=== PATIENT | female | born 1960 | race American Indian/Alaskan Native ===

== ENCOUNTER 2016-10-20 14:15 | Emergency (ER) | payer MEDICARE, OTHER ==
--- NOTE | 2016-10-20 16:43 | Emergency Department Report ---
ED General Adult HPI - General Chief complaint: Upper Respiratory Infection Stated complaint: LT SWOLLEN/FLU SYMPTOMS Time Seen by Provider: 10/20/16 16:22 Source: patient, family Mode of arrival: Wheelchair Limitations: No Limitations - History of Present Illness Initial comments: Patient here complaining of flulike symptoms to include bodyache, chills, nonproductive cough, congestion and left knee tightness. She says she feels like fluid is on her knee for the past 2 days. Denies any pain at present. Denies any chest pain or shortness of breath. Denies Any trauma to knee. She says she has a history of arthritis. Denies any fever. Denies any nausea or vomiting. Says she's been taking [id number] medication without any relief. MD Complaint: Flulike symptoms/knee tightness Onset/Timin -: days(s) Location: left, lower extremity Severity scale (0 -10): 0 Associated Symptoms: cough, fever/chills. denies: confusion, chest pain, headaches, loss of appetite, malaise, nausea/vomiting, rash, seizure, shortness of breath, syncope, weakness Treatments Prior to Arrival: other (OTC meds) - Related Data Home Medications Medication Instructions Recorded Confirmed Last Taken Losartan/Hydrochlorothiazide 1 each PO DAILY 11/17/14 11/17/14 11/17/14 [Hyzaar 100-25 Tablet] Metoprolol Xl [Metoprolol 50 mg PO QDAY 11/17/14 11/17/14 11/17/14 SUCCINATE] Pioglitazone (Nf) [Actos] 30 mg PO QDAY 11/17/14 11/17/14 11/17/14 Potassium Chloride [K-Dur] 20 meq PO QDAY 11/17/14 11/17/14 11/17/14 Warfarin Sodium [Coumadin] 10 mg PO DAILY 11/17/14 11/17/14 11/17/14 amLODIPine [Norvasc] 5 mg PO DAILY 11/17/14 11/17/14 11/17/14 Previous Rx's Medication Instructions Recorded Last Taken Type Metaxalone [Skelaxin] 800 mg PO TID PRN #14 tablet 03/09/16 Unknown Rx ALBUTEROL Inhaler [ProAir HFA 2 puff IH QID PRN #1 inhalation 10/20/16 Unknown Rx Inhaler] Levofloxacin [Levaquin] 750 mg PO QDAY #6 tablet 10/20/16 Unknown Rx guaiFENesin DM [Robitussin Dm] 10 ml PO Q6HR PRN #200 ml 10/20/16 Unknown Rx Allergies Allergy/AdvReac Type Severity Reaction Status Date / Time codeine Allergy Unknown Verified 11/17/14 18:05 ED Review of Systems ROS: Stated complaint: LT SWOLLEN/FLU SYMPTOMS Other details as noted in HPI Comment: All other systems reviewed and negative Constitutional: chills. denies: fever ENT: congestion Respiratory: cough, wheezing (scant wheezing upper yen), other (Rhonci cleared with cough). denies: orthopnea, shortness of breath, SOB with exertion , SOB at rest Cardiovascular: denies: chest pain, palpitations, edema, syncope Gastrointestinal: abdominal pain. denies: nausea, vomiting, diarrhea, constipation, hematemesis, melena, hematochezia Musculoskeletal: arthralgia. denies: back pain, joint swelling, myalgia Skin: denies: rash Neurological: denies: headache, numbness, paresthesias, confusion, abnormal gait , vertigo ED Past Medical Hx - Past Medical History Previous Medical History?: Yes Hx Hypertension: Yes Hx Diabetes: Yes Hx Arthritis: Yes Additional medical history: PE 2011. sepsis 2011 - Surgical History Past Surgical History?: Yes - Family History Family history: no significant - Social History Smoking Status: Never Smoker Substance Use Type: None - Medications Home Medications: Home Medications Medication Instructions Recorded Confirmed Last Taken Type Losartan/Hydrochlorothiazide 1 each PO DAILY 11/17/14 11/17/14 11/17/14 History [Hyzaar 100-25 Tablet] Metoprolol Xl [Metoprolol 50 mg PO QDAY 11/17/14 11/17/14 11/17/14 History SUCCINATE] Pioglitazone (Nf) [Actos] 30 mg PO QDAY 11/17/14 11/17/14 11/17/14 History Potassium Chloride [K-Dur] 20 meq PO QDAY 11/17/14 11/17/14 11/17/14 History Warfarin Sodium [Coumadin] 10 mg PO DAILY 11/17/14 11/17/14 11/17/14 History amLODIPine [Norvasc] 5 mg PO DAILY 11/17/14 11/17/14 11/17/14 History Metaxalone [Skelaxin] 800 mg PO TID PRN #14 tablet 03/09/16 Unknown Rx ALBUTEROL Inhaler [ProAir HFA 2 puff IH QID PRN #1 inhalation 10/20/16 Unknown Rx Inhaler] Levofloxacin [Levaquin] 750 mg PO QDAY #6 tablet 10/20/16 Unknown Rx guaiFENesin DM [Robitussin Dm] 10 ml PO Q6HR PRN #200 ml 10/20/16 Unknown Rx ED Physical Exam - General Limitations: No Limitations General appearance: alert, in no apparent distress, other (morbidly obese) - Head Head exam: Present: atraumatic, normocephalic, normal inspection - Eye Eye exam: Present: normal appearance, PERRL, EOMI. Absent: periorbital swelling , periorbital tenderness Pupils: Present: normal accommodation - ENT ENT exam: Present: normal exam, normal orophraynx, mucous membranes moist, TM's normal bilaterally, normal external ear exam - Neck Neck exam: Present: normal inspection, full ROM. Absent: tenderness, meningismus, lymphadenopathy, thyromegaly - Respiratory Respiratory exam: Present: respiratory distress, wheezes. Absent: rales, rhonchi, stridor, chest wall tenderness, accessory muscle use - Cardiovascular Cardiovascular Exam: Present: regular rate, normal rhythm, normal heart sounds - GI/Abdominal GI/Abdominal exam: Present: soft, normal bowel sounds. Absent: distended, tenderness, guarding, rebound, rigid - Extremities Exam Extremities exam: Present: normal inspection, full ROM, normal capillary refill. Absent: tenderness, pedal edema, joint swelling, calf tenderness - Expanded Lower Extremity Exam Left Hip exam: Present: normal inspection, full ROM, pelvic stability. Absent: tenderness, swelling, abrasion, laceration, ecchymosis, deformity, crepidus, dislocation, erythema, external rotation, internal rotation, shortening Upper Leg exam: Present: normal inspection, full ROM. Absent: tenderness, swelling, abrasion, laceration, ecchymosis, deformity, crepidus, dislocation, erythema Knee exam: Present: normal inspection, full ROM, full knee extension. Absent: tenderness, swelling, abrasion, laceration, ecchymosis, deformity, crepidus, dislocation, erythema, effusion, pain w/ pronation/supination, posterior draw sign, pain/laxity with valgus, pain/laxity with varus Lower Leg exam: Present: normal inspection, full ROM. Absent: tenderness, swelling, abrasion, laceration, ecchymosis, deformity, crepidus, dislocation, erythema, palpable cord, Renetta's sign Ankle exam: Present: normal inspection, full ROM. Absent: tenderness, abrasion , laceration, ecchymosis, deformity, crepidus, dislocation, erythema Foot/Toe exam: Present: normal inspection, full ROM. Absent: tenderness, swelling, abrasion, laceration, ecchymosis, deformity, crepidus, dislocation, erythema, amputation, puncture wound, foreign body, calcaneal tenderness, tenderness at base of 5th metatarsal, nail avulsion, subungual hematoma Neuro vascular tendon exam: Present: no vascular compromise. Absent: pulse deficit, abnormal cap refill, motor deficit, sensory deficit, tendon deficit, extremity cold to touch, pallor, abnormal 2-point discrimination, decreased fine /light touch, foot drop, peroneal nerve deficit, significant pain with passive ROM of distal joint Gait: Positive: observed and normal - Back Exam Back exam: Present: normal inspection, full ROM. Absent: tenderness, CVA tenderness (R), CVA tenderness (L), muscle spasm, paraspinal tenderness, vertebral tenderness, rash noted - Neurological Exam Neurological exam: Present: alert, oriented X3, normal gait, reflexes normal. Absent: motor sensory deficit - Psychiatric Psychiatric exam: Present: normal affect, normal mood - Skin Skin exam: Present: warm, dry, intact, normal color. Absent: rash ED Course Vital Signs 10/20/16 14:31 Temperature 98.5 F Pulse Rate 87 Respiratory 18 Rate Blood Pressure 158/80 O2 Sat by Pulse 97 Oximetry Vital Signs 10/20/16 10/20/16 10/20/16 14:31 18:00 18:15 Temperature 98.5 F Pulse Rate 87 Pulse Rate [ 77 78 Anterior Bilateral Upper Lobe] Pulse Rate [ 77 78 Posterior Bilateral Upper Lobe] Respiratory 18 Rate Respiratory 20 20 Rate [Anterior Bilateral Upper Lobe] Respiratory 20 20 Rate [Posterior Bilateral Upper Lobe] Blood Pressure 158/80 O2 Sat by Pulse 97 Oximetry Vital Signs 10/20/16 10/20/16 10/20/16 14:31 18:00 18:15 Temperature 98.5 F Pulse Rate 87 Pulse Rate [ 77 78 Anterior Bilateral Upper Lobe] Pulse Rate [ 77 78 Posterior Bilateral Upper Lobe] Respiratory 18 Rate Respiratory 20 20 Rate [Anterior Bilateral Upper Lobe] Respiratory 20 20 Rate [Posterior Bilateral Upper Lobe] Blood Pressure 158/80 Blood Pressure [Left] O2 Sat by Pulse 97 Oximetry 10/20/16 19:11 Temperature Pulse Rate 77 Pulse Rate [ Anterior Bilateral Upper Lobe] Pulse Rate [ Posterior Bilateral Upper Lobe] Respiratory 20 Rate Respiratory Rate [Anterior Bilateral Upper Lobe] Respiratory Rate [Posterior Bilateral Upper Lobe] Blood Pressure Blood Pressure 167/88 [Left] O2 Sat by Pulse 99 Oximetry - Reevaluation(s) Reevaluation #1: 10/20/16 17:06 Patient is stable ,no distress. Awaiting x-ray results. Reevaluation #2: 10/20/16 18:32 Upon reevaluation, lungs sounds clear. ED Medical Decision Making - Radiology Data Radiology results: report reviewed, image reviewed interpreted by me: Straight images reviewed by myself and attending physician and it was decided the patient has right lower lobe pneumonia. Assessment revealed mild right lower lobe atelectasis versus pneumonia per radiologist's X-ray of left knee revealed moderate to severe osteoarthritis. Most severe in the medial compartment. Diffuse osteopenia. - Medical Decision Making ED Course: Given DuoNeb times one nebulizer treatment in emergency room. Also given Levaquin 750 mg by mouth and prednisone 60 mg by mouth. I discussed the patient that her x-ray reveals that she has right lower lobe pneumonia and we' ll need to take antibiotic and inhaler. I discussed with her that her knee shows moderate to severe osteoarthritis withOsteopenia. Superficial need to follow-up with orthopedic doctor in 3-5 days and her primary care physician on . I understand the discharge instruction discharged home with her family in stable condition. She was given prescription for Levaquin and albuterol. Critical care attestation.: If time is entered above; I have spent that time in minutes in the direct care of this critically ill patient, excluding procedure time. ED Disposition Clinical Impression: Community acquired pneumonia, Arthralgia of knee, left, Cough Osteoarthritis Qualifiers: Osteoarthritis location: knee Osteoarthritis type: unspecified Laterality: left Qualified Code(s): M17.9 - Osteoarthritis of knee, unspecified Disposition: DISCHARGED TO HOME OR SELFCARE Is pt being admited?: No Does the pt Need Aspirin: No Condition: Stable Instructions: Community-acquired Pneumonia (ED), Arthralgia (ED), Knee Pain (ED ), Knee Exercises (GEN), Acute Cough (ED) Additional Instructions: Please take antibiotic and other medication as prescribed. Follow-up with primary care physician in 3 days. Follow-up with orthopedic doctor in 3-5 days regarding severe osteoarthritis to left knee. Increase her fluid intake For 72 hours Prescriptions: Levofloxacin [Levaquin] 750 mg PO QDAY #6 tablet ALBUTEROL Inhaler [ProAir HFA Inhaler] 2 puff IH QID PRN #1 inhalation PRN Reason: Shortness Of Breath guaiFENesin DM [Robitussin Dm] 10 ml PO Q6HR PRN #200 ml PRN Reason: Cough Referrals: JOSE EDUARDO MAO MD [Primary Care Provider] - 10/23/16 JONN GONSALES MD [Staff Physician] - 3-5 Days Forms: Accompanied Note, Work/School Release Form(ED)
[2016-10-20] MEDS ORDERED: DUONEB 0.5 MG-3 MG/3 ML SOLN IH ONE (16:58)
[2016-10-20] MEDS ORDERED: DELTASONE PO ONE (16:58)
--- NOTE | 2016-10-20 17:57 | XRay Report ---
FINAL REPORT EXAM: XR CHEST ROUTINE 2V HISTORY: coughing and fever TECHNIQUE: Frontal and lateral chest radiographs. PRIORS: None. FINDINGS: The cardiomediastinal silhouette is normal. Ground-glass opacities are seen in the right lower lobe. No pleural effusion. No pneumothorax. No acute osseous abnormality. IMPRESSION: Mild right lower lobe atelectasis versus pneumonia.
--- NOTE | 2016-10-20 17:58 | XRay Report ---
FINAL REPORT EXAM: XR KNEE 3V LT HISTORY: lt knee pain TECHNIQUE: Three views of the left knee. PRIORS: None. FINDINGS: No fracture. No dislocation. There is severe diffuse osteopenia. There is joint space narrowing of the medial compartment. Moderate tricompartment osteophyte formations are seen. No soft tissue abnormality. No joint effusion. IMPRESSION: Moderate to severe osteoarthritis of the left knee, most severe in the medial compartment. Diffuse osteopenia.
[2016-10-20] MEDS ORDERED: LEVAQUIN PO ONE (18:30)
[2016-10-20 19:12] VITALS: BP 167/88
== END 2016-10-20 19:35 | disposition home or self-care (01) ==
LOC: ED 14:15
DX: J18.9 Pneumonia, unspecified organism (principal); M17.9 Osteoarthritis of knee, unspecified; I10 Essential (primary) hypertension; E11.9 Type 2 diabetes mellitus without complications; Z79.01 Long term (current) use of anticoagulants; Z88.6 Allergy status to analgesic agent
CPT/HCPCS: 71020; 73562; 94640; 99283; J7512

== ENCOUNTER 2016-10-23 14:16 | Emergency (ER) | payer MEDICARE, OTHER ==
[2016-10-23 14:44] VITALS: BP 171/88
[2016-10-23 19:46] LABS: INR 2.01 (0.87-1.13)
--- NOTE | 2016-10-23 20:05 | Emergency Department Report ---
HPI - General Chief Complaint: Allergic Reaction Time Seen by Provider: 10/23/16 14:47 - HPI HPI: Patient presents today with what she feels could be tendinitis. She was in the ED Sunday which was 3 days ago and was diagnosed with pneumonia, she was placed on Levaquin. She now complains of right upper arm and lower arm pain. She denies wrist and elbow pain. She does state that her cough is getting better and is mild. She denies chest pain and shortness of breath. She also denies injury of her right arm. She does have elevated blood pressure today she has a history of hypertension, and she has not taken her blood pressure medication for today. ED Past Medical Hx - Past Medical History Hx Hypertension: Yes Hx Diabetes: Yes Hx Arthritis: Yes Additional medical history: PE 2011. sepsis 2011, Pneumonia 2016 - Surgical History Past Surgical History?: No - Social History Smoking Status: Never Smoker Substance Use Type: None - Medications Home Medications: Home Medications Medication Instructions Recorded Confirmed Last Taken Type Losartan/Hydrochlorothiazide 1 each PO DAILY 11/17/14 11/17/14 11/17/14 History [Hyzaar 100-25 Tablet] Metoprolol Xl [Metoprolol 50 mg PO QDAY 11/17/14 11/17/14 11/17/14 History SUCCINATE] Pioglitazone (Nf) [Actos] 30 mg PO QDAY 11/17/14 11/17/14 11/17/14 History Potassium Chloride [K-Dur] 20 meq PO QDAY 11/17/14 11/17/14 11/17/14 History Warfarin Sodium [Coumadin] 10 mg PO DAILY 11/17/14 11/17/14 11/17/14 History amLODIPine [Norvasc] 5 mg PO DAILY 11/17/14 11/17/14 11/17/14 History Metaxalone [Skelaxin] 800 mg PO TID PRN #14 tablet 03/09/16 Unknown Rx ALBUTEROL Inhaler [ProAir HFA 2 puff IH QID PRN #1 inhalation 10/20/16 Unknown Rx Inhaler] Levofloxacin [Levaquin] 750 mg PO QDAY #6 tablet 10/20/16 Unknown Rx guaiFENesin DM [Robitussin Dm] 10 ml PO Q6HR PRN #200 ml 10/20/16 Unknown Rx Azithromycin [Zithromax] 250 mg PO DAILY #6 tablet 10/23/16 Unknown Rx ED Review of Systems ROS: Stated complaint: REACTION TO MEDS Other details as noted in HPI Constitutional: denies: chills, fever ENT: denies: ear pain, throat pain Respiratory: cough (mild). denies: shortness of breath, wheezing Cardiovascular: denies: chest pain, palpitations Gastrointestinal: denies: abdominal pain, nausea, diarrhea Genitourinary: denies: urgency, dysuria, discharge Musculoskeletal: as per HPI. denies: back pain, joint swelling, arthralgia Skin: denies: rash, lesions Neurological: denies: headache, weakness, numbness, paresthesias Physical Exam - Physical Exam Vital Signs: Vital Signs 10/23/16 14:38 Temperature 97.6 F Pulse Rate 95 H Respiratory 18 Rate Blood Pressure 171/88 O2 Sat by Pulse 100 Oximetry General: General: Female well-developed and nourished, no apparent distress noted, patient is ambulatory at time of exam. Cardiovascular: Heart sounds present S1-S2, no murmur, gallop, or ectopy noted,. Respiratory: Chest symmetry with respirations, lungs clear to auscultate upper and lower lobes, respirations even and unlabored, no rales, rhonchi, crackles noted. Peripheral Vascular: Radial pulses are 2/4 bilaterally. Upper Extremities: Warm without clubbing, edema or cyanosis. Neurological: The patient is oriented to person, place and time. Strength and sensation are grossly intact. Face is symmetric. There is no focal deficit. Skin: No ulceration, lesions, rashes, skin warm and dry, no erythematous areas. Musculo Skeletal - 5/5 strength, normal range of motion, no swollen or erythematous joints, patient is not tender at wrist, elbow, shoulder. She is mildly tender to palpate right upper arm. Psych: AxOx3, answers questions appropriately, mood full range, affect normal, normal speech and tone. ED Course Vital Signs 10/23/16 14:38 Temperature 97.6 F Pulse Rate 95 H Respiratory 18 Rate Blood Pressure 171/88 O2 Sat by Pulse 100 Oximetry ED Medical Decision Making - Medical Decision Making Patient presents to the ED with right upper arm pain after starting Levaquin. I will advise her to stop the Levaquin and give her a Z-Bryan. I also shaun an INR level and she is on Coumadin and has been on Levaquin. It shows that she is at a 2.01. I advised her to follow-up with her primary care physician who has her on the Coumadin. I will also place a sling on her right arm and give her a referral to orthopedics. - Differential Diagnosis tendon rupture, musculoskeletal pain, pneumonia Critical Care Time: No Critical care attestation.: If time is entered above; I have spent that time in minutes in the direct care of this critically ill patient, excluding procedure time. ED Disposition Clinical Impression: Pneumonia, Pain, arm, right Disposition: DISCHARGED TO HOME OR SELFCARE Is pt being admited?: No Does the pt Need Aspirin: No Condition: Stable Instructions: Bacterial Pneumonia (ED), Community-acquired Pneumonia (ED), Musculoskeletal Pain (ED) Additional Instructions: Follow-up with orthopedic Wear sling until follow up with ortho Follow up with PCP about INR 2 Prescriptions: Azithromycin [Zithromax] 250 mg PO DAILY #6 tablet Referrals: ISRRAEL LUGO [Primary Care Provider] - 3-5 Days JONN GONSALES MD [Staff Physician] - 3-5 Days Time of Disposition: 20:15
== END 2016-10-23 20:30 | disposition home or self-care (01) ==
LOC: ED 14:16
DX: J18.9 Pneumonia, unspecified organism (principal); M79.621 Pain in right upper arm; I10 Essential (primary) hypertension; E11.9 Type 2 diabetes mellitus without complications; M19.90 Unspecified osteoarthritis, unspecified site
CPT/HCPCS: 36415; 82962; 85610; 99283

== ENCOUNTER 2018-02-11 08:24 | Outpatient (CLI) | payer MEDICARE, OTHER ==
--- NOTE | 2018-02-11 10:39 | Ultrasound Report ---
ULTRASOUND PELVIC COMPLETE ULTRASOUND TRANSVAGINAL HISTORY: Abnormal vaginal bleeding, postmenopausal bleeding. COMPARISON: None. TECHNIQUE: Transabdominal and transvaginal ultrasound with color doppler interrogation. FINDINGS: Uterus: The uterus is anteverted and measures 8 x 8 x 8 cm. There is a large calcified fibroid in the posterior wall measuring up to 4.2 cm. A second noncalcified fibroid is identified in the lower posterior wall measuring 4.0 cm. The cervix is unremarkable. Endometrium: The endometrium is displaced anteriorly by the large calcified posterior wall fibroid. The endometrium measures 4.8 mm. Right ovary: 2.1 x 1.6 x 1.2 cm. No focal abnormality. Left ovary: Not visualized. No pelvic fluid or mass is identified. Normal color doppler interrogation. IMPRESSION: Uterine fibroid disease as described.
== END 2018-02-11 08:25 | disposition home or self-care (01) ==
LOC: US 08:24
PROVIDERS: ATTEND Internal Medicine
DX: D25.9 Leiomyoma of uterus, unspecified (principal); N85.4 Malposition of uterus
CPT/HCPCS: 76830; 76856

== ENCOUNTER 2018-05-24 11:42 | Outpatient (CLI) | payer MEDICARE, OTHER ==
--- NOTE | 2018-05-24 12:20 | XRay Report ---
ROUTINE CHEST, TWO VIEWS: HISTORY: Bronchitis. Compared to 10/20/16. The trachea, heart, mediastinal contour, lung yen and bony thorax are unremarkable. IMPRESSION: Unremarkable chest x-ray.
== END 2018-05-24 11:43 | disposition home or self-care (01) ==
LOC: XRAY 11:42
DX: J40 Bronchitis, not specified as acute or chronic (principal); I10 Essential (primary) hypertension; M19.90 Unspecified osteoarthritis, unspecified site; Z88.6 Allergy status to analgesic agent
CPT/HCPCS: 71046

== ENCOUNTER 2018-07-25 07:47 | Emergency (ER) | payer MEDICARE, OTHER ==
[2018-07-25 08:02] VITALS: BP 164/72
[2018-07-25] MEDS ORDERED: DELTASONE PO STA (08:20)
[2018-07-25] MEDS ORDERED: DUONEB *Not for PRN Use IH ONE (08:20)
--- NOTE | 2018-07-25 08:42 | XRay Report ---
ROUTINE CHEST, TWO VIEWS: HISTORY: Cough. The trachea, heart, mediastinal contour, lung yen and bony thorax are unremarkable. No significant change since 06/07/18. IMPRESSION: No acute cardiopulmonary process.
--- NOTE | 2018-07-25 09:57 | Emergency Department Report ---
Minor Respiratory - HPI Chief Complaint: Upper Respiratory Infection Stated Complaint: BRONCHITIS Time Seen by Provider: 07/25/18 08:19 Duration: 3 Days Pain Location: Chest Severity: moderate Minor Respiratory: Yes Able to Tolerate Fluids, No Rhinorrhea, No Sore Throat, No Ear Pain, No Sick Contacts, No Hemoptysis, No Chest Pain, No Shortness of Breath, No Fever Other History: 58-year-old female presents complaining of continued cough, congestion and mucus production Sbordone for over a month. He was last seen June 07 and diagnosed with chronic bronchitis has been taking qvair daily. Complains of continued cough with mucus production. ED Review of Systems ROS: Stated complaint: BRONCHITIS Other details as noted in HPI Constitutional: denies: chills, fever Eyes: denies: eye pain, eye discharge, vision change ENT: denies: ear pain, throat pain Respiratory: denies: cough, shortness of breath, wheezing Cardiovascular: denies: chest pain, palpitations Endocrine: no symptoms reported Gastrointestinal: denies: abdominal pain, nausea, diarrhea Genitourinary: denies: urgency, dysuria, discharge Musculoskeletal: denies: back pain, joint swelling, arthralgia Skin: denies: rash, lesions Neurological: denies: headache, weakness, paresthesias Psychiatric: denies: anxiety, depression Hematological/Lymphatic: denies: easy bleeding, easy bruising ED Past Medical Hx - Past Medical History Previous Medical History?: Yes Hx Hypertension: Yes Hx Congestive Heart Failure: No Hx Diabetes: Yes Hx Arthritis: Yes Hx Asthma: No Hx COPD: No Additional medical history: PE 2011. sepsis 2011, Pneumonia 2016 - Surgical History Past Surgical History?: Yes Additional Surgical History: C section - Social History Smoking Status: Never Smoker Substance Use Type: None - Medications Home Medications: Home Medications Medication Instructions Recorded Confirmed Last Taken Type Losartan/Hydrochlorothiazide 1 each PO DAILY 11/17/14 06/07/18 06/06/18 History [Hyzaar 100-25 TAB] ALBUTEROL Inhaler (OR & NICU) 2 puff IH QID PRN #1 inhalation 10/20/16 06/07/18 Unknown Rx [ProAir HFA Inhaler] ALBUTEROL NEB's [Proventil 0.083% 2.5 mg IH Q6H 06/07/18 06/07/18 Unknown History NEBS] Amlodipine Besylate [Norvasc] 10 mg PO QDAY 06/07/18 06/07/18 06/06/18 History AtorvaSTATin [Lipitor] 10 mg PO QHS 06/07/18 06/07/18 06/06/18 History Metformin HCl [Metformin HCl ER] 750 mg PO QAM 06/07/18 06/07/18 06/06/18 History Metoprolol [Lopressor TAB] 50 mg PO QDAY 06/07/18 06/07/18 Unknown History Omeprazole 40 mg PO QDAY 06/07/18 06/07/18 Unknown History Warfarin [Coumadin] 10 mg PO QDAY 06/07/18 06/07/18 06/06/18 History Potassium Chloride [K-Dur] 20 meq PO QDAY #30 tablet 06/10/18 Unknown Rx ALBUTEROL Inhaler (OR & NICU) 2 puff IH QID PRN #1 inhalation 07/25/18 Unknown Rx [ProAir HFA Inhaler] guaiFENesin/CODEINE [Robitussin AC] 5 ml PO Q6H PRN #120 ml 07/25/18 Unknown Rx predniSONE [Deltasone] 50 mg PO QDAY #5 tab 07/25/18 Unknown Rx Minor Respiratory Exam - Exam General: Vital signs noted. No distress. Alert and acting appropriately. HEENT: Yes Moist Mucous Membranes, Yes Rhinorrhea, No Pharyngeal Erythema, No Pharyngeal Exudates, No Conjuctival Injection, No Frontal Tenderness, No Maxillary Tenderness Ear: Neither TM Bulge, Neither TM Erythema, Neither EAC Pain, Neither EAC Discharge Neck: Yes Supple, No Adenopathy Lungs: Yes Good Air Exchange, Yes Ronchi, No Wheezes, No Stridor, No Cough, No Labored Respirations, No Retractions, No Use of Accessory Muscles, No Other Abnormal Lung Sounds Heart: Yes Regular, No Murmur Abdomen: Yes Normal Bowel Sounds, No Tenderness, No Peritoneal Signs Skin: No Rash, No Edema Neurologic: Alert and oriented, no deficits. Musculoskeletal: Unremarkable. ED Course Vital Signs 07/25/18 07/25/18 07/25/18 07:59 09:01 09:02 Temperature 98.3 F Pulse Rate 82 Pulse Rate [ 73 75 Anterior Bilateral Throughout] Respiratory 20 Rate Respiratory 18 18 Rate [Anterior Bilateral Throughout] Blood Pressure 164/72 O2 Sat by Pulse 96 Oximetry ED Medical Decision Making - Radiology Data Radiology results: report reviewed - Medical Decision Making breathing much improved after medications. no distress. minimal ronchi and wheezes Critical care attestation.: If time is entered above; I have spent that time in minutes in the direct care of this critically ill patient, excluding procedure time. ED Disposition Clinical Impression: Bronchitis, Wheezes Disposition: DC-01 TO HOME OR SELFCARE Is pt being admited?: No Does the pt Need Aspirin: No Condition: Stable Instructions: Chronic Bronchitis (ED) Referrals: PRIMARY CARE [Primary Care Provider] - 3-5 Days [facility] [Provider Group] - 3-5 Days
== END 2018-07-25 10:20 | disposition home or self-care (01) ==
LOC: ED 07:47
DX: J40 Bronchitis, not specified as acute or chronic (principal); I10 Essential (primary) hypertension; E11.9 Type 2 diabetes mellitus without complications; M19.90 Unspecified osteoarthritis, unspecified site; Z88.5 Allergy status to narcotic agent; Z79.84 Long term (current) use of oral hypoglycemic drugs
CPT/HCPCS: 71046; 94640; 99283; J7512

== ENCOUNTER 2018-10-21 12:04 | Emergency (ER) | payer MEDICARE, OTHER ==
[2018-10-21 12:18] VITALS: BP 159/78
[2018-10-21 14:01] LABS: Hematocrit 36.6 % (30.3-42.9); Hemoglobin 11.9 gm/dl (10.1-14.3); Mean Corpuscular HGB Conc 32 % (30-34); Mean Corpuscular Volume 73 fl (79-97); Platelet Count 366 K/mm3 (140-440); Red Cell Distribution Width 18.7 % (13.2-15.2)
[2018-10-21 15:07] LABS: Alanine Aminotransferase 11 units/L (7-56); Albumin 3.7 g/dL (3.9-5); BUN/Creatinine Ratio 13; Blood Urea Nitrogen 13 mg/dL (7-17); Hemolysis Index 11
[2018-10-21] MEDS ORDERED: DUONEB *Not for PRN Use IH ONE (15:08)
[2018-10-21] MEDS ORDERED: K-DUR PO ONE (15:09)
--- NOTE | 2018-10-21 15:26 | Emergency Department Report ---
Minor Respiratory - HPI Chief Complaint: Dyspnea/Respdistress Stated Complaint: SOB/COUGHING Duration: 2 weeks Pain Location: Nose Severity: moderate Minor Respiratory: Yes Rhinorrhea, Yes Able to Tolerate Fluids, Yes Cough, Yes Shortness of Breath, No Sore Throat, No Ear Pain, No Sick Contacts, No Hemoptysis, No Chest Pain, No Fever Other History: This is a 58-year-old -Italian female presents with shortness of breath and cough 2 weeks. Patient was seen in this emergency room and diagnosed with bronchitis a month ago. Patient states she's been coughing e braulio since. She was seen by primary care provider who referred her to a budget director. The budget director scheduled her for a sleep study to rule out sleep apnea which is scheduled for October 24. Past medical history of arthritis, asthma, diabetes, hypertension, and morbidly obese. Patient states there is intermittent rhinorrhea and cough is productive at times. She is fine during the day and cough during the night. She currently denies shortness of breath. She denies chest pain, fever, nausea or vomiting, myalgias, or abdominal pain. ED Review of Systems ROS: Stated complaint: SOB/COUGHING Other details as noted in HPI Constitutional: denies: chills, fever ENT: congestion. denies: ear pain, throat pain Respiratory: cough, shortness of breath. denies: wheezing Cardiovascular: denies: chest pain, palpitations Gastrointestinal: denies: abdominal pain, nausea, diarrhea Musculoskeletal: denies: myalgia Neurological: denies: headache, weakness, paresthesias Psychiatric: denies: anxiety, depression ED Past Medical Hx - Past Medical History Previous Medical History?: Yes Hx Hypertension: Yes Hx Congestive Heart Failure: No Hx Diabetes: Yes Hx Pulmonary Embolism: Yes Hx Arthritis: Yes Hx Asthma: No Hx COPD: No Additional medical history: PE 2012, severe weakness post sepsis requiring use of cane to walk. sepsis 2011, Pneumonia 2016 - Surgical History Past Surgical History?: Yes Additional Surgical History: C section - Social History Smoking Status: Never Smoker Substance Use Type: None - Medications Home Medications: Home Medications Medication Instructions Recorded Confirmed Last Taken Type Losartan/Hydrochlorothiazide 1 each PO DAILY 11/17/14 06/07/18 06/06/18 History [Hyzaar 100-25 TAB] ALBUTEROL Inhaler (OR & NICU) 2 puff IH QID PRN #1 inhalation 10/20/16 06/07/18 Unknown Rx [ProAir HFA Inhaler] ALBUTEROL NEB's [Proventil 0.083% 2.5 mg IH Q6H 06/07/18 06/07/18 Unknown History NEBS] Amlodipine Besylate [Norvasc] 10 mg PO QDAY 06/07/18 06/07/18 06/06/18 History AtorvaSTATin [Lipitor] 10 mg PO QHS 06/07/18 06/07/18 06/06/18 History Metformin HCl [Metformin HCl ER] 750 mg PO QAM 06/07/18 06/07/18 06/06/18 History Metoprolol [Lopressor TAB] 50 mg PO QDAY 06/07/18 06/07/18 Unknown History Omeprazole 40 mg PO QDAY 06/07/18 06/07/18 Unknown History Warfarin [Coumadin] 10 mg PO QDAY 06/07/18 06/07/18 06/06/18 History Potassium Chloride [K-Dur] 20 meq PO QDAY #30 tablet 06/10/18 Unknown Rx ALBUTEROL Inhaler (OR & NICU) 2 puff IH QID PRN #1 inhalation 07/25/18 Unknown Rx [ProAir HFA Inhaler] guaiFENesin/CODEINE [Robitussin AC] 5 ml PO Q6H PRN #120 ml 07/25/18 Unknown Rx predniSONE [Deltasone] 50 mg PO QDAY #5 tab 07/25/18 Unknown Rx ALBUTEROL Inhaler(NF) [VENTOLIN 2 puff IH Q4-6H PRN #1 inha 08/18/18 Unknown Rx Inhaler(NF)] ALBUTEROL NEB's [Proventil 0.083% 2.5 mg IH Q4H PRN #25 vial 08/18/18 Unknown Rx NEBS] Acetaminophen [Tylenol] 650 mg PO QID PRN #30 capsule 08/18/18 Unknown Rx Azithromycin [Zithromax Z-DALE] 250 mg PO DAILY #5 tab 08/18/18 Unknown Rx Benzonatate [Tessalon Perles] 100 mg PO Q8HR PRN #30 capsule 08/18/18 Unknown Rx Dexamethasone [Decadron] 4 mg PO Q12H 3 Days #6 tablet 08/18/18 Unknown Rx Benzonatate [Tessalon Perle] 100 mg PO TID PRN #10 capsule 10/01/18 Unknown Rx Potassium Chloride [K-Dur] 20 meq PO QDAY 14 Days #14 tablet 10/01/18 Unknown Rx levoFLOXacin [Levaquin TAB] 750 mg PO QDAY #5 tablet 10/21/18 Unknown Rx Minor Respiratory Exam - Exam General: Vital signs noted. No distress. Alert and acting appropriately. HEENT: Yes Moist Mucous Membranes, Yes Rhinorrhea (turbinates mildly congested with clear discharge), No Pharyngeal Erythema, No Pharyngeal Exudates, No Conjuctival Injection, No Frontal Tenderness, No Maxillary Tenderness Ear: Neither TM Bulge, Neither TM Erythema, Neither EAC Pain, Neither EAC Discharge Neck: Yes Supple, No Adenopathy Lungs: Yes Good Air Exchange, Yes Wheezes (throughout), No Ronchi, No Stridor, No Cough, No Labored Respirations, No Retractions, No Use of Accessory Muscles, No Other Abnormal Lung Sounds Heart: Yes Regular, No Murmur Abdomen: Yes Normal Bowel Sounds, No Tenderness, No Peritoneal Signs Skin: No Rash, No Edema Neurologic: Alert and oriented, no deficits. Musculoskeletal: Unremarkable. ED Course Vital Signs 10/21/18 12:14 Temperature 98.5 F Pulse Rate 87 Respiratory 20 Rate Blood Pressure 159/78 O2 Sat by Pulse 91 Oximetry ED Medical Decision Making - Lab Data Result diagrams: 10/21/18 13:43 10/21/18 13:43 Lab Results 10/21/18 10/21/18 Range/Units 13:43 13:43 WBC 8.7 (4.5-11.0) K/mm3 RBC 5.00 (3.65-5.03) M/mm3 Hgb 11.9 (10.1-14.3) gm/dl Hct 36.6 (30.3-42.9) % MCV 73 L (79-97) fl MCH 24 L (28-32) pg MCHC 32 (30-34) % RDW 18.7 H (13.2-15.2) % Plt Count 366 (140-440) K/mm3 Sodium 140 (137-145) mmol/L Potassium 3.0 L (3.6-5.0) mmol/L Chloride 96.8 L (98-107) mmol/L Carbon Dioxide 26 (22-30) mmol/L Anion Gap 20 mmol/L BUN 13 (7-17) mg/dL Creatinine 1.0 (0.7-1.2) mg/dL Estimated GFR > 60 ml/min BUN/Creatinine Ratio 13 % Glucose 94 (65-100) mg/dL Calcium 9.0 (8.4-10.2) mg/dL Total Bilirubin 0.50 (0.1-1.2) mg/dL AST 18 (5-40) units/L ALT 11 (7-56) units/L Alkaline Phosphatase 117 (35-129) units/L Troponin T < 0.010 (0.00-0.029) ng/mL Total Protein 8.0 (6.3-8.2) g/dL Albumin 3.7 L (3.9-5) g/dL Albumin/Globulin Ratio 0.9 % - Radiology Data Radiology results: report reviewed FINAL REPORT EXAM: XR CHEST ROUTINE 2V HISTORY: cough TECHNIQUE: PA and lateral views of the chest Comparison: Chest x-ray dated October 01, 2018 FINDINGS: There is the appearance of an area pulmonary consolidation in the right middle lobe. There is no evidence of focal infiltrate, pneumothorax or pleural fluid collection. Cardiac silhouette is enlarged similar in appearance to the previous study. The thoracic aorta is unremarkable. The bony structures are notable for degenerative change of the shoulder joints bilaterally and spondylitic change of the thoracic spine. IMPRESSION: 1. Appearance of pulmonary consolidation right middle lobe suggestive of pulmonary infiltrate. Follow-up to resolution is recommended. If further imaging is required, CT chest would be helpful. 2. Enlarged cardiac silhouette similar in appearance to the previous study. - Medical Decision Making This is a 58 y.o. female presents to the emergency room with cough and shortness of breath for 2 weeks. Patient is stable and was examined by me. Patient does not seem toxic or ill in appearance. No acute signs of distress noted. Chest xray has been obtained and dictated by radiologist. Patient notified of x-ray results of pneumonia. Given one duoneb treatment while in ER. Start levofloxacin 750 mg po daily x 5 days. Continue using proair inhaler for shortness of breath. She agrees to the ED plan of care to treat outpatient. No further questions noted. Discharged home with amoxicillin. Follow up with Folder Operator in 24-48 hours. Critical care attestation.: If time is entered above; I have spent that time in minutes in the direct care of this critically ill patient, excluding procedure time. ED Disposition Clinical Impression: SOB (shortness of breath), Cough in adult Pneumonia Qualifiers: Pneumonia type: due to unspecified organism Laterality: right Lung location: middle lobe of lung Qualified Code(s): J18.1 - Lobar pneumonia, unspecified org anism Disposition: TO HOME OR SELFCARE Is pt being admited?: No Does the pt Need Aspirin: No Condition: Stable Instructions: Bacterial Pneumonia (ED) Additional Instructions: Complete full course of medication as prescribed. Follow up with your primary care provider in 48-72 hours. Increase fluids to prevent dehydration. Avoid smoking and rest. Prescriptions: levoFLOXacin [Levaquin TAB] 750 mg PO QDAY #5 tablet Referrals: JOSE EDUARDO MAO MD [Referring] - 3-5 Days Time of Disposition: 18:22
--- NOTE | 2018-10-21 17:35 | XRay Report ---
FINAL REPORT EXAM: XR CHEST ROUTINE 2V HISTORY: cough TECHNIQUE: PA and lateral views of the chest Comparison: Chest x-ray dated October 01, 2018 FINDINGS: There is the appearance of an area pulmonary consolidation in the right middle lobe. There is no evidence of focal infiltrate, pneumothorax or pleural fluid collection. Cardiac silhouette is enlarged similar in appearance to the previous study. The thoracic aorta is unremarkable. The bony structures are notable for degenerative change of the shoulder joints bilaterally and spondy litic change of the thoracic spine. IMPRESSION: 1. Appearance of pulmonary consolidation right middle lobe suggestive of pulmonary infiltrate. Follow-up to resolution is recommended. If further imaging is required, CT chest would be helpful. 2. Enlarged cardiac silhouette similar in appearance to the previous study.
[2018-10-21] MEDS ORDERED: LEVAQUIN PO ONE (18:24)
== END 2018-10-21 18:49 | disposition home or self-care (01) ==
LOC: ED 12:04
DX: J18.1 Lobar pneumonia, unspecified organism (principal); I10 Essential (primary) hypertension; E11.9 Type 2 diabetes mellitus without complications; M19.90 Unspecified osteoarthritis, unspecified site; J45.909 Unspecified asthma, uncomplicated; E66.01 Morbid (severe) obesity due to excess calories; Z88.6 Allergy status to analgesic agent
CPT/HCPCS: 36415; 71046; 80053; 84484; 85027; 93005; 93010; 94640; 99284

== ENCOUNTER 2018-12-11 09:41 | Emergency (ER) | payer MEDICARE, OTHER ==
[2018-12-11 10:20] VITALS: BP 168/88
--- NOTE | 2018-12-11 11:26 | Emergency Department Report ---
ED Eye Problem HPI - General Chief complaint: Eye Problems Stated complaint: EYE IRRITATION Time Seen by Provider: 12/11/18 11:01 Source: patient Mode of arrival: Ambulatory Limitations: No Limitations - History of Present Illness chief complaint: eye redness -: Gradual, days(s) (2) Onset Description: gradual If Injury: none Eye Symptoms: redness Severity: mild Associated Symptoms: none - Related Data Home Medications Medication Instructions Recorded Confirmed Last Taken Losartan/Hydrochlorothiazide 1 each PO DAILY 11/17/14 06/07/18 06/06/18 [Hyzaar 100-25 TAB] ALBUTEROL NEB's [Proventil 0.083% 2.5 mg IH Q6H 06/07/18 06/07/18 Unknown NEBS] Amlodipine Besylate [Norvasc] 10 mg PO QDAY 06/07/18 06/07/18 06/06/18 AtorvaSTATin [Lipitor] 10 mg PO QHS 06/07/18 06/07/18 06/06/18 Metformin HCl [Metformin HCl ER] 750 mg PO QAM 06/07/18 06/07/18 06/06/18 Metoprolol [Lopressor TAB] 50 mg PO QDAY 06/07/18 06/07/18 Unknown Omeprazole 40 mg PO QDAY 06/07/18 06/07/18 Unknown Warfarin [Coumadin] 10 mg PO QDAY 06/07/18 06/07/18 06/06/18 Previous Rx's Medication Instructions Recorded Last Taken Type ALBUTEROL Inhaler (OR & NICU) 2 puff IH QID PRN #1 inhalation 10/20/16 Unknown Rx [ProAir HFA Inhaler] Potassium Chloride [K-Dur] 20 meq PO QDAY #30 tablet 06/10/18 Unknown Rx ALBUTEROL Inhaler (OR & NICU) 2 puff IH QID PRN #1 inhalation 07/25/18 Unknown Rx [ProAir HFA Inhaler] guaiFENesin/CODEINE [Robitussin AC] 5 ml PO Q6H PRN #120 ml 07/25/18 Unknown Rx predniSONE [Deltasone] 50 mg PO QDAY #5 tab 07/25/18 Unknown Rx ALBUTEROL Inhaler(NF) [VENTOLIN 2 puff IH Q4-6H PRN #1 inha 08/18/18 Unknown Rx Inhaler(NF)] ALBUTEROL NEB's [Proventil 0.083% 2.5 mg IH Q4H PRN #25 vial 08/18/18 Unknown Rx NEBS] Acetaminophen [Tylenol] 650 mg PO QID PRN #30 capsule 08/18/18 Unknown Rx Azithromycin [Zithromax Z-DALE] 250 mg PO DAILY #5 tab 08/18/18 Unknown Rx Benzonatate [Tessalon Perles] 100 mg PO Q8HR PRN #30 capsule 08/18/18 Unknown Rx Dexamethasone [Decadron] 4 mg PO Q12H 3 Days #6 tablet 08/18/18 Unknown Rx Benzonatate [Tessalon Perle] 100 mg PO TID PRN #10 capsule 10/01/18 Unknown Rx Potassium Chloride [K-Dur] 20 meq PO QDAY 14 Days #14 tablet 10/01/18 Unknown Rx levoFLOXacin [Levaquin TAB] 750 mg PO QDAY #5 tablet 10/21/18 Unknown Rx Polymyxin B Sulf/Trimethoprim 1 drop OU Q3HR 5 Days #1 bottle 12/11/18 Unknown Rx [Polytrim Eye Drops [id number]/0.1%] Allergies Allergy/AdvReac Type Severity Reaction Status Date / Time codeine Allergy Unknown Verified 11/17/14 18:05 ED Review of Systems ROS: Stated complaint: EYE IRRITATION Other details as noted in HPI Constitutional: denies: fever, malaise ENT: denies: ear pain, congestion Respiratory: denies: cough ED Past Medical Hx - Past Medical History Previous Medical History?: Yes Hx Hypertension: Yes Hx Congestive Heart Failure: No Hx Diabetes: Yes Hx Pulmonary Embolism: Yes Hx Arthritis: Yes Hx Asthma: No Hx COPD: No Additional medical history: PE 2011, severe weakness post sepsis requiring use of cane to walk. sepsis 2011, Pneumonia 2016 - Surgical History Past Surgical History?: Yes Additional Surgical History: C section - Social History Smoking Status: Never Smoker Substance Use Type: None - Medications Home Medications: Home Medications Medication Instructions Recorded Confirmed Last Taken Type Losartan/Hydrochlorothiazide 1 each PO DAILY 11/17/14 06/07/18 06/06/18 History [Hyzaar 100-25 TAB] ALBUTEROL Inhaler (OR & NICU) 2 puff IH QID PRN #1 inhalation 10/20/16 06/07/18 Unknown Rx [ProAir HFA Inhaler] ALBUTEROL NEB's [Proventil 0.083% 2.5 mg IH Q6H 06/07/18 06/07/18 Unknown History NEBS] Amlodipine Besylate [Norvasc] 10 mg PO QDAY 06/07/18 06/07/18 06/06/18 History AtorvaSTATin [Lipitor] 10 mg PO QHS 06/07/18 06/07/18 06/06/18 History Metformin HCl [Metformin HCl ER] 750 mg PO QAM 06/07/18 06/07/18 06/06/18 History Metoprolol [Lopressor TAB] 50 mg PO QDAY 06/07/18 06/07/18 Unknown History Omeprazole 40 mg PO QDAY 06/07/18 06/07/18 Unknown History Warfarin [Coumadin] 10 mg PO QDAY 06/07/18 06/07/18 06/06/18 History Potassium Chloride [K-Dur] 20 meq PO QDAY #30 tablet 06/10/18 Unknown Rx ALBUTEROL Inhaler (OR & NICU) 2 puff IH QID PRN #1 inhalation 07/25/18 Unknown Rx [ProAir HFA Inhaler] guaiFENesin/CODEINE [Robitussin AC] 5 ml PO Q6H PRN #120 ml 07/25/18 Unknown Rx predniSONE [Deltasone] 50 mg PO QDAY #5 tab 07/25/18 Unknown Rx ALBUTEROL Inhaler(NF) [VENTOLIN 2 puff IH Q4-6H PRN #1 inha 08/18/18 Unknown Rx Inhaler(NF)] ALBUTEROL NEB's [Proventil 0.083% 2.5 mg IH Q4H PRN #25 vial 08/18/18 Unknown Rx NEBS] Acetaminophen [Tylenol] 650 mg PO QID PRN #30 capsule 08/18/18 Unknown Rx Azithromycin [Zithromax Z-DALE] 250 mg PO DAILY #5 tab 08/18/18 Unknown Rx Benzonatate [Tessalon Perles] 100 mg PO Q8HR PRN #30 capsule 08/18/18 Unknown Rx Dexamethasone [Decadron] 4 mg PO Q12H 3 Days #6 tablet 08/18/18 Unknown Rx Benzonatate [Tessalon Perle] 100 mg PO TID PRN #10 capsule 10/01/18 Unknown Rx Potassium Chloride [K-Dur] 20 meq PO QDAY 14 Days #14 tablet 10/01/18 Unknown Rx levoFLOXacin [Levaquin TAB] 750 mg PO QDAY #5 tablet 10/21/18 Unknown Rx Polymyxin B Sulf/Trimethoprim 1 drop OU Q3HR 5 Days #1 bottle 12/11/18 Unknown Rx [Polytrim Eye Drops [id number]/0.1%] ED Physical Exam - General Limitations: No Limitations General appearance: alert, in no apparent distress - Eye Eye exam: Present: conjunctival injection. Absent: nystagmus, periorbital swelling, periorbital tenderness Pupils: Present: normal accommodation - Expanded Eye Exam Expanded Pupils: Regular, Round: Bilateral, Reactive: Bilateral Sclera/Conjunctival: Injection: Bilateral - ENT ENT exam: Present: mucous membranes moist - Neck Neck exam: Present: normal inspection, full ROM - Neurological Exam Neurological exam: Present: alert, oriented X3 - Psychiatric Psychiatric exam: Present: normal affect, normal mood - Skin Skin exam: Present: warm, dry, intact, normal color ED Course Vital Signs 12/11/18 10:18 Temperature 99.4 F Pulse Rate 97 H Respiratory 20 Rate Blood Pressure 168/88 O2 Sat by Pulse 97 Oximetry ED Medical Decision Making - Medical Decision Making Ms Anthony presents with bilateral eye redness suspect allergic conjunctivitis, prescribed Claritin. Also prescribed Polytrim in the instance of possible infection. Critical care attestation.: If time is entered above; I have spent that time in minutes in the direct care of this critically ill patient, excluding procedure time. ED Disposition Clinical Impression: Allergic conjunctivitis Disposition: DC- TO HOME OR SELFCARE Is pt being admited?: No Does the pt Need Aspirin: No Condition: Stable Instructions: Conjunctivitis (ED) Prescriptions: Polymyxin B Sulf/Trimethoprim [Polytrim Eye Drops [id number]/0.1%] 1 drop OU Q3HR 5 Days #1 bottle Referrals: [facility] [Other] - 3-5 Days
== END 2018-12-11 11:42 | disposition home or self-care (01) ==
LOC: ED 09:41
DX: H10.89 Other conjunctivitis (principal); I10 Essential (primary) hypertension; E11.9 Type 2 diabetes mellitus without complications; M19.90 Unspecified osteoarthritis, unspecified site; Z79.899 Other long term (current) drug therapy; Z86.711 Personal history of pulmonary embolism; Z88.4 Allergy status to anesthetic agent
CPT/HCPCS: 99281

== ENCOUNTER 2018-12-23 10:33 | Emergency (ER) | payer MEDICARE, OTHER ==
[2018-12-23] MEDS ORDERED: ATROVENT IH ONE ×2 (12:59→15:44)
[2018-12-23] MEDS ORDERED: SOLU-Medrol IV ONE (12:59)
[2018-12-23] MEDS ORDERED: PROVENTIL IH ONE ×2 (12:59→15:44)
--- NOTE | 2018-12-23 13:06 | Emergency Department Report ---
ED Shortness of Breath HPI - General Chief Complaint: Dyspnea/Respdistress Stated Complaint: ASTHMA/SOB Time Seen by Provider: 12/23/18 12:51 Source: patient Mode of arrival: Ambulatory Limitations: No Limitations - History of Present Illness Initial Comments: Patient is 58 years old female with history of asthma, obstructive sleep apnea, hypertension and diabetes. Patient presented to the ER complaining of shortness of breath and wheezing since yesterday. Patient stated that she took one breathing treatment yesterday and did help. Patient denied any chest pain, fever or chills. Patient also denied any nausea or vomiting. MD Complaint: shortness of breath, "asthma attack" -: Last night Improves With: bronchodilators Known History Of: asthma - Related Data Home Medications Medication Instructions Recorded Confirmed Last Taken Losartan/Hydrochlorothiazide 1 each PO DAILY 11/17/14 06/07/18 06/06/18 [Hyzaar 100-25 TAB] ALBUTEROL NEB's [Proventil 0.083% 2.5 mg IH Q6H 06/07/18 06/07/18 Unknown NEBS] Amlodipine Besylate [Norvasc] 10 mg PO QDAY 06/07/18 06/07/18 06/06/18 AtorvaSTATin [Lipitor] 10 mg PO QHS 06/07/18 06/07/18 06/06/18 Metformin HCl [Metformin HCl ER] 750 mg PO QAM 06/07/18 06/07/18 06/06/18 Metoprolol [Lopressor TAB] 50 mg PO QDAY 06/07/18 06/07/18 Unknown Omeprazole 40 mg PO QDAY 06/07/18 06/07/18 Unknown Warfarin [Coumadin] 10 mg PO QDAY 06/07/18 06/07/18 06/06/18 Previous Rx's Medication Instructions Recorded Last Taken Type ALBUTEROL Inhaler (OR & NICU) 2 puff IH QID PRN #1 inhalation 10/20/16 Unknown Rx [ProAir HFA Inhaler] Potassium Chloride [K-Dur] 20 meq PO QDAY #30 tablet 06/10/18 Unknown Rx ALBUTEROL Inhaler (OR & NICU) 2 puff IH QID PRN #1 inhalation 07/25/18 Unknown Rx [ProAir HFA Inhaler] guaiFENesin/CODEINE [Robitussin AC] 5 ml PO Q6H PRN #120 ml 07/25/18 Unknown Rx predniSONE [Deltasone] 50 mg PO QDAY #5 tab 07/25/18 Unknown Rx ALBUTEROL Inhaler(NF) [VENTOLIN 2 puff IH Q4-6H PRN #1 inha 08/18/18 Unknown Rx Inhaler(NF)] ALBUTEROL NEB's [Proventil 0.083% 2.5 mg IH Q4H PRN #25 vial 08/18/18 Unknown Rx NEBS] Acetaminophen [Tylenol] 650 mg PO QID PRN #30 capsule 08/18/18 Unknown Rx Azithromycin [Zithromax Z-DALE] 250 mg PO DAILY #5 tab 08/18/18 Unknown Rx Benzonatate [Tessalon Perles] 100 mg PO Q8HR PRN #30 capsule 08/18/18 Unknown Rx Dexamethasone [Decadron] 4 mg PO Q12H 3 Days #6 tablet 08/18/18 Unknown Rx Benzonatate [Tessalon Perle] 100 mg PO TID PRN #10 capsule 10/01/18 Unknown Rx Potassium Chloride [K-Dur] 20 meq PO QDAY 14 Days #14 tablet 10/01/18 Unknown Rx levoFLOXacin [Levaquin TAB] 750 mg PO QDAY #5 tablet 10/21/18 Unknown Rx Polymyxin B Sulf/Trimethoprim 1 drop OU Q3HR 5 Days #1 bottle 12/11/18 Unknown Rx [Polytrim Eye Drops [id number]/0.1%] Allergies Allergy/AdvReac Type Severity Reaction Status Date / Time codeine Allergy Unknown Verified 11/17/14 18:05 ED Review of Systems ROS: Stated complaint: ASTHMA/SOB Other details as noted in HPI Comment: All other systems reviewed and negative Constitutional: denies: chills, fever Respiratory: shortness of breath, SOB with exertion, SOB at rest, wheezing. denies: cough, orthopnea Cardiovascular: denies: chest pain, palpitations Gastrointestinal: denies: abdominal pain, nausea, vomiting, diarrhea, constipation, hematemesis, melena, hematochezia Neurological: denies: headache, weakness, numbness, paresthesias, confusion ED Past Medical Hx - Past Medical History Hx Hypertension: Yes Hx Congestive Heart Failure: No Hx Diabetes: Yes Hx Pulmonary Embolism: Yes Hx Arthritis: Yes Hx Asthma: No Hx COPD: No Additional medical history: PE 2011, severe weakness post sepsis requiring use of cane to walk. sepsis 2011, Pneumonia 2017 - Surgical History Past Surgical History?: Yes Additional Surgical History: C section - Social History Smoking Status: Never Smoker Substance Use Type: None - Medications Home Medications: Home Medications Medication Instructions Recorded Confirmed Last Taken Type Losartan/Hydrochlorothiazide 1 each PO DAILY 11/17/14 06/07/18 06/06/18 History [Hyzaar 100-25 TAB] ALBUTEROL Inhaler (OR & NICU) 2 puff IH QID PRN #1 inhalation 10/20/16 06/07/18 Unknown Rx [ProAir HFA Inhaler] ALBUTEROL NEB's [Proventil 0.083% 2.5 mg IH Q6H 06/07/18 06/07/18 Unknown History NEBS] Amlodipine Besylate [Norvasc] 10 mg PO QDAY 06/07/18 06/07/18 06/06/18 History AtorvaSTATin [Lipitor] 10 mg PO QHS 06/07/18 06/07/18 06/06/18 History Metformin HCl [Metformin HCl ER] 750 mg PO QAM 06/07/18 06/07/18 06/06/18 History Metoprolol [Lopressor TAB] 50 mg PO QDAY 06/07/18 06/07/18 Unknown History Omeprazole 40 mg PO QDAY 06/07/18 06/07/18 Unknown History Warfarin [Coumadin] 10 mg PO QDAY 06/07/18 06/07/18 06/06/18 History Potassium Chloride [K-Dur] 20 meq PO QDAY #30 tablet 06/10/18 Unknown Rx ALBUTEROL Inhaler (OR & NICU) 2 puff IH QID PRN #1 inhalation 07/25/18 Unknown Rx [ProAir HFA Inhaler] guaiFENesin/CODEINE [Robitussin AC] 5 ml PO Q6H PRN #120 ml 07/25/18 Unknown Rx predniSONE [Deltasone] 50 mg PO QDAY #5 tab 07/25/18 Unknown Rx ALBUTEROL Inhaler(NF) [VENTOLIN 2 puff IH Q4-6H PRN #1 inha 08/18/18 Unknown Rx Inhaler(NF)] ALBUTEROL NEB's [Proventil 0.083% 2.5 mg IH Q4H PRN #25 vial 08/18/18 Unknown Rx NEBS] Acetaminophen [Tylenol] 650 mg PO QID PRN #30 capsule 08/18/18 Unknown Rx Azithromycin [Zithromax Z-DALE] 250 mg PO DAILY #5 tab 08/18/18 Unknown Rx Benzonatate [Tessalon Perles] 100 mg PO Q8HR PRN #30 capsule 08/18/18 Unknown Rx Dexamethasone [Decadron] 4 mg PO Q12H 3 Days #6 tablet 08/18/18 Unknown Rx Benzonatate [Tessalon Perle] 100 mg PO TID PRN #10 capsule 10/01/18 Unknown Rx Potassium Chloride [K-Dur] 20 meq PO QDAY 14 Days #14 tablet 10/01/18 Unknown Rx levoFLOXacin [Levaquin TAB] 750 mg PO QDAY #5 tablet 10/21/18 Unknown Rx Polymyxin B Sulf/Trimethoprim 1 drop OU Q3HR 5 Days #1 bottle 12/11/18 Unknown Rx [Polytrim Eye Drops [id number]/0.1%] ED Physical Exam - General Limitations: No Limitations General appearance: alert, in no apparent distress - Head Head exam: Present: atraumatic, normocephalic, normal inspection - Eye Eye exam: Present: normal appearance, PERRL - ENT ENT exam: Present: normal exam, normal orophraynx, mucous membranes moist - Neck Neck exam: Present: normal inspection, full ROM. Absent: tenderness, meningismus, lymphadenopathy, thyromegaly - Respiratory Respiratory exam: Present: wheezes, rhonchi. Absent: respiratory distress, rales, chest wall tenderness, accessory muscle use, decreased breath sounds, prolonged expiratory - Cardiovascular Cardiovascular Exam: Present: regular rate, normal rhythm, normal heart sounds - GI/Abdominal GI/Abdominal exam: Present: soft, normal bowel sounds. Absent: distended, tenderness, guarding, rebound, rigid, organomegaly, mass, bruit, pulsatile mass, hernia - Extremities Exam Extremities exam: Present: normal inspection, full ROM, normal capillary refill. Absent: pedal edema, calf tenderness - Back Exam Back exam: Present: normal inspection, full ROM. Absent: tenderness, CVA tenderness (R), CVA tenderness (L), muscle spasm, paraspinal tenderness, vertebral tenderness - Neurological Exam Neurological exam: Present: alert, oriented X3, CN II-XII intact, other (bilateral lower extremity lymphedema) - Skin Skin exam: Present: warm, intact, normal color ED Course Vital Signs 12/23/18 12/23/18 10:40 12:48 Temperature 98.4 F 98.1 F Pulse Rate 107 H 87 Respiratory 16 14 Rate Blood Pressure 141/76 147/54 [Left] O2 Sat by Pulse 93 99 Oximetry ED Medical Decision Making - Lab Data Result diagrams: 12/23/18 13:37 12/23/18 13:38 - EKG Data -: EKG Interpreted by Ct EKG shows normal: sinus rhythm Rate: normal - EKG Data Interpretation: no acute changes - Radiology Data Radiology results: report reviewed Referring Physician: MARLO LING Patient Name: SAIRA LUGO Date of : 1960 Sex: Female Report Date: 2018-12-23 Report Status: [id number] XRay Report Signed Patient: SAIRA LUGO MR#: [id number] : 1960 Acct:[id number] Age/Sex: 58 / F ADM Date: 12/23/18 Loc: ED Attending Dr: Ordering Physician: MARLO LING Date of Service: 12/23/18 Procedure(s): XR chest 1V ap Accession Number(s): [id number] cc: MARLO LING Fluoro Time In Minutes: AP CHEST: HISTORY: Dyspnea Borderline to mild cardiomegaly and pulmonary venous congestion are identified. The lungs are clear. No evidence for pneumonia, CHF or pneumothorax. IMPRESSION: Borderline cardiomegaly and pulmonary venous congestion. No CHF. Transcribed By: TTR Dictated By: STIVNE MCKENNA JR, MD Electronically Authenticated By: STIVEN MCKENNA JR, MD Signed Date/Time: 12/23/181444 DD/ 44 TD/TT: 12/23/181444 - Medical Decision Making Patient is 58 years old female with history of asthma, obstructive sleep apnea, hypertension and diabetes. Patient presented to the ER complaining of shortness of breath and wheezing since yesterday. Patient stated that she took one breathing treatment yesterday and did help. Patient denied any chest pain, fever or chills. Patient also denied any nausea or vomiting. Patient stated that she is feeling much better. Patient received albuterol 5 mg, Atrovent 0.5 mg and Solu-Medrol 125 mg IV. Chest x-ray is unremarkable. Labs reviewed that is unremarkable. I advised the patient to follow-up with primary care physician in the next 2-3 days and to return to the ER if her symptoms are not improved. Critical care attestation.: If time is entered above; I have spent that time in minutes in the direct care of this critically ill patient, excluding procedure time. ED Disposition Clinical Impression: SOB (shortness of breath), COPD with acute exacerbation, Acute bronchitis Disposition: TO HOME OR SELFCARE Is pt being admited?: No Condition: Stable Instructions: Chronic Obstructive Pulmonary Disease (ED), Acute Bronchitis (ED) Referrals: ALIREZA WELCH MD [Primary Care Provider] - 3-5 Days
[2018-12-23 14:00] LABS: BUN/Creatinine Ratio 14; Blood Urea Nitrogen 13 mg/dL (7-17); Hemolysis Index 1
[2018-12-23 14:22] LABS: Basophils % (Auto) 0.6 % (0.0-1.8); Eosinophils # (Auto) 0.5 K/mm3 (0.0-0.4); Eosinophils % (Auto) 8.4 % (0.0-4.3); Hematocrit 33.6 % (30.3-42.9); Hemoglobin 10.5 gm/dl (10.1-14.3); Lymphocytes # (Auto) 1.2 K/mm3 (1.2-5.4); Mean Corpuscular HGB Conc 31 % (30-34); Mean Corpuscular Volume 74 fl (79-97); Monocytes # (Auto) 0.6 K/mm3 (0.0-0.8); Monocytes % (Auto) 8.9 % (0.0-7.3); Platelet Count 316 K/mm3 (140-440); Red Blood Count 4.56 M/mm3 (3.65-5.03); Red Cell Distribution Width 19.7 % (13.2-15.2)
--- NOTE | 2018-12-23 14:49 | XRay Report ---
AP CHEST: HISTORY: Dyspnea Borderline to mild cardiomegaly and pulmonary venous congestion are identified. The lungs are clear. No evidence for pneumonia, CHF or pneumothorax. IMPRESSION: Borderline cardiomegaly and pulmonary venous congestion. No CHF.
[2018-12-23 16:31] VITALS: BP 135/72
== END 2018-12-23 16:39 | disposition home or self-care (01) ==
LOC: ED 10:33
DX: J44.1 Chronic obstructive pulmonary disease with (acute) exacerbation (principal); J20.9 Acute bronchitis, unspecified; G47.30 Sleep apnea, unspecified; I10 Essential (primary) hypertension; E11.9 Type 2 diabetes mellitus without complications; M19.90 Unspecified osteoarthritis, unspecified site; Z88.5 Allergy status to narcotic agent; Z79.01 Long term (current) use of anticoagulants; Z87.01 Personal history of pneumonia (recurrent); Z86.711 Personal history of pulmonary embolism
CPT/HCPCS: 36415; 71045; 80048; 83880; 85025; 93005; 93010; 96374; 99284; J2930